=== PATIENT | female | born 1955 | race Caucasian/White ===

== ENCOUNTER 2018-12-17 12:50 | Inpatient (IN) | payer MEDICARE ==
[~2018-12-17] VITALS: Ht 149.9 cm; Wt 32.4 kg
--- NOTE | 2018-12-17 13:21 | HP ---
ADMIT DATE: 12/17/2018 CHIEF COMPLAINT: Shortness of breath and cough. HISTORY OF PRESENT ILLNESS: A 63-year-old white female with multiple medical problems including COPD, chronic tobacco abuse, history of renal artery stenosis, peripheral arterial disease as well as cardiomyopathy, presents with increasing cough, sputum production, fatigue and weakness and was felt to have a COPD exacerbation. She has preferred to be in the hospital as she feels ill at this time. She gets most of her medical care at [facility] and sees a bread panner periodically for chronic kidney disease stage 3-4. PAST MEDICAL HISTORY: She has had a celiac artery stenosis repair in 2011. No other surgeries. ALLERGIES: No known drug allergies except the NAPROSYN. MEDICATIONS: She takes metoprolol, atorvastatin, omeprazole and hydrochlorothiazide, but she is not compliant with medications according to her. SOCIAL HISTORY: Smoked most of her adult life, continues to smoke about a quarter pack a day. . FAMILY HISTORY: Unremarkable. REVIEW OF SYSTEMS: No other problems. OBJECTIVE: ENT: All within normal limits except for mildly cyanotic lips. NECK: Bilateral carotid bruits. No murmur or JVD. LUNGS: Decreased breath sounds. No wheezing or tachypnea. CARDIOVASCULAR: Regular rate. Grade 2-3 systolic murmur in the upper right sternal border, rest is normal. No arrhythmias. ABDOMEN: Obese, soft, benign, nontender. EXTREMITIES: Poor pedal pulses, good radial pulses, 2+ clubbing. Mild cyanosis. No edema. NEUROLOGIC: Physiologic. ASSESSMENT: 1. Chronic obstructive pulmonary disease with acute exacerbation. 2. Chronic tobacco abuse. 3. Hypertension with mild cardiomyopathy. 4. Medication noncompliance. 5. Peripheral arterial disease. 6. Chronic kidney disease stage 3/4. PLAN: IV steroids, respiratory treatments and antibiotics based on sputum cultures and results and labs. Hydration. PARISH ORTIZ MD DR: JEANETTE/eric JOB#: [id number] / [id number]
[2018-12-17] MEDS ORDERED: ACETAMINOPHEN 325 MG TABLET. PO PRN (13:45)
[2018-12-17] MEDS: methylPREDNISolone SOD SUCC PF 40 MG/ML VIAL. IV SCH ×2 (14:00→21:03)
--- NOTE | 2018-12-17 14:29 | RAD ---
EXAM: Chest, single view. HISTORY: COPD. COMPARISON: None. FINDINGS: A frontal view of the chest is obtained. The lungs are hyperinflated and there are coarse interstitial markings due to emphysema. There is apical pleural parenchymal scarring. There is no infiltrate, pleural effusion or pneumothorax. The heart is normal in size. IMPRESSION: Emphysema. No acute pulmonary finding. Electronically signed by: Soo Shea MD (12/17/2018 2:26 PM) [place] [id number]
[2018-12-17 14:38] LABS: BASO % 0 % (0-3); EOS % 0 % (0-3); HEMATOCRIT 46.2 % (36.0-47.0); HEMOGLOBIN 15.8 g/dL (12.0-15.5); LYMPH # 1.2 x10^3/uL (1.0-4.8); LYMPH % 14 % (24-48); MEAN CORPUSCULAR HEMOGLOBIN 34 pg (25-35); MEAN CORPUSCULAR HGB CONC 34 g/dL (31-37); MEAN CORPUSCULAR VOLUME 98 fL (79-100); MONO # 0.5 x10^3/uL (0.0-1.1); MONO % 5 % (0-9); NEUT # 7.3 x10^3/uL (1.8-7.7); NEUT % 81 % (31-73); PLATELET COUNT 175 x10^3/uL (140-400); RED CELL DISTRIBUTION WIDTH 13.1 % (11.5-14.5)
[2018-12-17 14:57] LABS: CALCIUM 9.3 mg/dL (8.5-10.1); CREATININE 2.6 mg/dL (0.6-1.0); GFR 18.5; POTASSIUM 3.7 mmol/L (3.5-5.1)
[2018-12-17 15:00] VITALS: BP 153/71
[2018-12-17] MEDS: IPRATRPIUM/ALBUTEROL 0.5/2.5MG 3 ML NEBU. NEB SCH ×2 (15:55→19:30)
[2018-12-17] MEDS: IV DEXTROSE 5 %-0.45 % NACL 1,000 ML IV SCH (17:03)
[2018-12-17] MEDS ORDERED: ASPI-612 PO (18:32)
[2018-12-17] MEDS ORDERED: METO200T46 PO (18:32)
[2018-12-17] MEDS ORDERED: HYDR12.58 PO (18:32)
[2018-12-17] MEDS ORDERED: LACT1CAP6 PO (18:32)
[2018-12-17] MEDS ORDERED: AMLO10TA8 PO (18:32)
[2018-12-17] MEDS ORDERED: ATOR10TA60 PO (18:32)
[2018-12-17] MEDS ORDERED: MULT1TAB52 PO (18:32)
--- NOTE | 2018-12-17 18:37 | NUR ---
Pt arrived on unit at approx 1330. Pt arrived via wheelchair, accompanied by her son. This engineering technical writer completed admission and history, pt poor historian. Pt was oriented to room, call light, and bathroom. Gait assessed, pt steady on her feet. Fresh water and meal tray given. No new orders at this time. Will continue to monitor pt.
[2018-12-17 19:00] VITALS: BP 162/59
[2018-12-17] MEDS: ATORVASTATIN CALCIUM 10 MG TABLET. PO SCH (21:03)
[2018-12-17 22:31] VITALS: BP 168/60
[2018-12-18 01:23] LABS: BILIRUBIN,URINE NEGATIVE (NEG); CLARITY,URINE CLEAR; COLOR,URINE YELLOW; NITRITE,URINE POSITIVE (NEG); PROTEIN,URINE 100 mg/dL (NEG-TRACE); UROBILINOGEN,URINE 0.2 mg/dL (0.2 mg/dL)
[2018-12-18 01:33] LABS: BACTERIA,URINE MANY /HPF (0-FEW); SQUAMOUS EPITHELIAL CELL,UR OCC /LPF
[2018-12-18 02:43] VITALS: BP 138/57
[2018-12-18] MEDS: IV DEXTROSE 5 %-0.45 % NACL 1,000 ML IV SCH ×3 (03:05→22:54)
[2018-12-18 07:00] VITALS: BP 145/56
[2018-12-18] MEDS: IPRATRPIUM/ALBUTEROL 0.5/2.5MG 3 ML NEBU. NEB SCH ×4 (07:31→20:00)
[2018-12-18] MEDS: ASPIRIN ENTERIC COATED 81 MG TABLET.DR. PO SCH (08:30)
[2018-12-18] MEDS: amLODIPine BESYLATE 10 MG TABLET PO SCH (08:30)
[2018-12-18] MEDS: LACTOBACILLUS RHAMNOSUS GG 1 CAPSULE. PO SCH (08:30)
[2018-12-18] MEDS: MULTIVITAMIN with MINERAL TABLET. PO SCH (08:30)
[2018-12-18] MEDS: methylPREDNISolone SOD SUCC PF 40 MG/ML VIAL. IV SCH ×2 (08:32→20:27)
--- NOTE | 2018-12-18 08:45 | PDOC ---
Provider Note Provider Note no temp, sputum, denies uti sxs- exam same. labs ok but ckd 3/4- cont iv hydration, steroids, urine cult/ rocephin - 6 min walk, likely needs O2 at home- reduce metop dose re copd PARISH ORTIZ MD Dec 18, 2018 08:45
[2018-12-18] MEDS: METOPROLOL SUCC 24HR ER 100 MG TAB.ER.24H. PO SCH (08:55)
[2018-12-18] MEDS ORDERED: hydroCHLOROthiazide 12.5 MG CAPSULE PO SCH (09:00)
[2018-12-18] MEDS ORDERED: METOPROLOL SUCC 24HR ER 100 MG TAB.ER.24H. PO SCH (09:00)
[2018-12-18] MEDS: cefTRIAXone IV Push 1 GM VIAL. IVP SCH (09:22)
[2018-12-18 11:00] VITALS: BP 158/52
--- NOTE | 2018-12-18 11:11 | NUR ---
SW following pt for dc planning. Chart reviewed and discussed with RN. Pt lives at home with family. No SW needs noted at this time. Will continue to follow pending dc needs.
[2018-12-18 15:00] VITALS: BP 163/51
[2018-12-18 19:00] VITALS: BP 170/60
[2018-12-18] MEDS: ATORVASTATIN CALCIUM 10 MG TABLET. PO SCH (20:26)
[2018-12-18 23:00] VITALS: BP 158/59
[2018-12-19 03:00] VITALS: BP 149/56
[2018-12-19 07:00] VITALS: BP 165/59
[2018-12-19] MEDS: IPRATRPIUM/ALBUTEROL 0.5/2.5MG 3 ML NEBU. NEB SCH ×3 (08:00→16:00)
[2018-12-19] MEDS: METOPROLOL SUCC 24HR ER 100 MG TAB.ER.24H. PO SCH (08:46)
[2018-12-19] MEDS: MULTIVITAMIN with MINERAL TABLET. PO SCH (08:46)
[2018-12-19] MEDS: amLODIPine BESYLATE 10 MG TABLET PO SCH (08:46)
[2018-12-19] MEDS: ASPIRIN ENTERIC COATED 81 MG TABLET.DR. PO SCH (08:47)
[2018-12-19] MEDS: LACTOBACILLUS RHAMNOSUS GG 1 CAPSULE. PO SCH (08:47)
[2018-12-19 08:55] LABS: CALCIUM 8.4 mg/dL (8.5-10.1); CREATININE 1.7 mg/dL (0.6-1.0); GFR 30.3; POTASSIUM 3.7 mmol/L (3.5-5.1)
--- NOTE | 2018-12-19 09:04 | PDOC ---
Provider Note Provider Note still very tired but no new sxs- scant cloudy sputum, no gu sxs- no temp, beter color- passed 6 min walk- calvin do echo re her systolic murmur as no prior record- bmp pending re brittnee, normal creat baseline is about 1.5- cont iv hydration and rocep pending urine cult-NEEDS TO BE IN HOSPITAL PARISH ORTIZ MD Dec 19, 2018 09:04
[2018-12-19] MEDS: methylPREDNISolone SOD SUCC PF 40 MG/ML VIAL. IV SCH ×2 (10:50→21:07)
[2018-12-19] MEDS: IV DEXTROSE 5 %-0.45 % NACL 1,000 ML IV SCH (10:51)
[2018-12-19] MEDS: cefTRIAXone IV Push 1 GM VIAL. IVP SCH (10:51)
[2018-12-19 11:00] VITALS: BP 154/63
--- NOTE | 2018-12-19 11:36 | CARD ---
MR#: [id number] Date of Study: 12/19/2018 Ordering Physician: PARISH ORTIZ, Referring Physician: PARISH ORTIZ Tech: Juliet Melvin RDCS APPROVED REPORT EXAM: Two-dimensional and M-mode echocardiogram with Doppler and color Doppler. Other Information Quality : AverageHR: 60bpm Rhythm : NSRTechnically limited study due to COPD. INDICATION Murmur 2D DIMENSIONS RVDd2.3 (2.9-3.5cm)Left Atrium(2D)2.9 (1.6-4.0cm) IVSd1.2 (0.7-1.1cm)Aortic Root(2D)2.5 (2.0-3.7cm) LVDd3.5 (3.9-5.9cm)LVOT Diameter1.8 (1.8-2.4cm) PWd0.8 (0.7-1.1cm)LVDs2.5 (2.5-4.0cm) FS (%) 27.8 %SV27.6 ml LVEF(%)55.0 (>50%) M-Mode DIMENSIONS Left Atrium(MM)3.73 (2.5-4.0cm)Aortic Root2.58 (2.2-3.7cm) Aortic Valve AoV Peak Refugio.111.4cm/sAoV VTI29.1cm AO Peak GR.5.0mmHgLVOT Peak Refugio.69.4cm/s AO Mean GR.3mmHgAVA (VMAX)1.52cm2 NAY (VTI)1.60cm2 Mitral Valve MV E Ivqwnzkp01.8cm/sMV DECEL [id number] MV A Vgajlona57.8cm/sE/A Ratio1.6 Pulmonary Valve PV Peak Pmiweuvh12.9cm/s Tricuspid Valve TR P. Iparahbk055gv/sRAP [id number] TR Peak Gr.70agZjHKTK80ipUd LEFT VENTRICLE The left ventricle is normal size. Proximal septal thickening is noted. The left ventricular systolic function is normal. The Ejection Fraction is 55-60%. There is normal LV segmental wall motion. Trans mitral Doppler flow pattern is Grade II-pseudonormal filling dynamics. RIGHT VENTRICLE The right ventricle is normal size. There is normal right ventricular wall thickness. The right ventr icular systolic function is normal. ATRIA The left atrium size is normal. The right atrium size is normal. The interatrial septum is intact wit h no evidence for an atrial septal defect or patent foramen ovale as noted on 2-D or Doppler imaging. AORTIC VALVE The aortic valve is thickened but opens well. The aortic valve is trileaflet. Doppler and Color Flow revealed no significant aortic regurgitation. There is no significant aortic valvular stenosis. There is no aortic valvular vegetation. MITRAL VALVE Mitral annular calcification is mild. There is no evidence of mitral valve prolapse. There is no mitr al valve stenosis. Doppler and Color-flow revealed mild to moderate mitral regurgitation. TRICUSPID VALVE The tricuspid valve is normal in structure and function. Doppler and Color Flow revealed trace tricus pid regurgitation. There is moderate pulmonary hypertension. The PA pressure was estimated at 40 mmHg . There is no tricuspid valve prolapse or vegetation. There is no tricuspid valve stenosis. PULMONIC VALVE The pulmonic valve is not well visualized. GREAT VESSELS The aortic root is normal in size. The ascending aorta is normal in size. The IVC is normal in size a nd collapses >50% with inspiration. PERICARDIAL EFFUSION There is no evidence of significant pericardial effusion. Critical Notification Critical Value: No <Conclusion> The left ventricular systolic function is normal. The Ejection Fraction is 55-60%. There is normal LV segmental wall motion. Transmitral Doppler flow pattern is Grade II-pseudonormal filling dynamics. Mild to moderate mitral regurgitation. Trace tricuspid regurgitation. The PA pressure was estimated at 40 mmHg. There is no evidence of significant pericardial effusion. Signed by : Shayne Laird, Electronically Approved : 12/19/2018 11:35:57
[2018-12-19 15:00] VITALS: BP 159/48
[2018-12-19 19:05] VITALS: BP 181/56
[2018-12-19] MEDS: ATORVASTATIN CALCIUM 10 MG TABLET. PO SCH (21:07)
[2018-12-19 23:05] VITALS: BP 153/52
[2018-12-20 03:05] VITALS: BP 168/61
[2018-12-20] MEDS: IV DEXTROSE 5 %-0.45 % NACL 1,000 ML IV SCH (06:41)
[2018-12-20 07:00] VITALS: BP 166/54
[2018-12-20] MEDS: IPRATRPIUM/ALBUTEROL 0.5/2.5MG 3 ML NEBU. NEB SCH (08:00)
--- NOTE | 2018-12-20 08:02 | PDOC ---
Provider Note Provider Note [id number] PARISH ORTIZ MD Dec 20, 2018 08:02
[2018-12-20] MEDS: MULTIVITAMIN with MINERAL TABLET. PO SCH (08:22)
[2018-12-20] MEDS: METOPROLOL SUCC 24HR ER 100 MG TAB.ER.24H. PO SCH (08:22)
[2018-12-20] MEDS: amLODIPine BESYLATE 10 MG TABLET PO SCH (08:23)
[2018-12-20] MEDS: ASPIRIN ENTERIC COATED 81 MG TABLET.DR. PO SCH (08:23)
[2018-12-20] MEDS: LACTOBACILLUS RHAMNOSUS GG 1 CAPSULE. PO SCH (08:23)
--- NOTE | 2018-12-20 08:36 | DS ---
DATE OF DISCHARGE: 12/20/2018 HOSPITAL SUMMARY: A 63-year-old white female with end-stage COPD, tobacco abuse, chronic renal insufficiency and hypertension, came in with generalized weakness and fatigue. BUN was high at 32, creatinine 2.6 which is above her normal baseline. Two days later, BUN down to 21, creatinine 1.7, GFR around 30 which is more like her normal baseline. Urine showed evidence of infection. Urine cultures have grown out E. coli greater than 1,000,000 colonies. ID and sensitivities pending at this time. Blood culture had no growth. Chest x-ray was clear. She was treated with IV Rocephin and IV fluids and her output and renal function has improved back more to her baseline and she is comfortable being transferred outpatient medication at this time. She was given her first dose of cefdinir 300 mg prior to dismissal and will start cefdinir 300 mg daily tomorrow for 5 more days. FINAL DIAGNOSES: 1. Acute renal insufficiency secondary to vasomotor nephropathy, dehydration. 2. Chronic kidney disease 3, stable. 3. End-stage chronic obstructive pulmonary disease and chronic tobacco abuse. 4. Urinary tract infection. OPERATIONS, PROCEDURES, COMPLICATIONS AND CONSULTATIONS: None. DISPOSITION: Cefdinir 300 mg daily for 5 more days. Home meds remain the same. Activity as tolerated. Note that she passed a 6-minute walk without any evidence of hypoxia. Prognosis is poor because of continued tobacco abuse, malnutrition. PARISH ORTIZ MD DR: JEANETTE/eric JOB#: [id number] / [id number]
[2018-12-20] MEDS ORDERED: CEFDINIR 300 MG CAPSULE PO SCH (09:00)
[2018-12-20 11:00] VITALS: BP 159/63
--- NOTE | 2018-12-20 11:15 | NUR ---
Patient was discharged from the unit around 1115. Patient was escorted from the unit in a wheelchair by staff and accompanied by her son. Patient left the unit with her belongings and patient passport. Discharge information was discussed with the patient prior to her dismissal and she had no questions or concerns regarding the information provided to her.
== END 2018-12-20 11:19 | disposition home or self-care (01) | DRG 190 ==
LOC: 5 SOUTH 13:11
PROVIDERS: ADMIT Family Medicine; ATTEND Family Medicine
DX: J44.1 Chronic obstructive pulmonary disease with (acute) exacerbation (principal); N17.0 Acute kidney failure with tubular necrosis; N39.0 Urinary tract infection, site not specified; I42.9 Cardiomyopathy, unspecified; E46 Unspecified protein-calorie malnutrition; Z68.1 Body mass index [BMI] 19.9 or less, adult; N18.4 Chronic kidney disease, stage 4 (severe); E86.0 Dehydration; F17.210 Nicotine dependence, cigarettes, uncomplicated; I12.9 Hypertensive chronic kidney disease with stage 1 through stage 4 chronic kidney disease, or unspecified chronic kidney disease; I70.1 Atherosclerosis of renal artery; I73.9 Peripheral vascular disease, unspecified; Z91.14 Patient's other noncompliance with medication regimen; Z88.8 Allergy status to other drugs, medicaments and biological substances; B96.20 Unspecified Escherichia coli [E. coli] as the cause of diseases classified elsewhere
CPT/HCPCS: 36415; 71045; 80048; 81001; 84443; 85025; 87040; 87086; 87186; 93306; 94618; J0696; J2920; G0378